=== PATIENT | female | born 1930 | race Caucasian/White ===

== ENCOUNTER 2017-01-08 15:31 | Emergency (ER) | payer MEDICARE, OTHER ==
[~2017-01-08 15:31] MED LIST: ASAB PO; BYSTOLIC5 MG PO; CALCIUM PO; CALTRA600D PO; CHOLECALCIFEROL PO; CIP5 PO; CRANBERRY300 MG PO; DEMA20 PO; ELIQUIS 5 MG TAB5 MG PO; GARLIC PO; HALF81 PO; IMDUR30 PO; INSNOVN SC; LANTUS SC; LIPITOR40 PO; MULTIPLE VIT PO; NORV5 PO; NOVOLOG SC; NOVOPEN SC; OS500+D PO; PLAVIX PO; PRAVAC PO; REFRES1 TOP; SYN125 PO; ULTRAM50 PO; VITAMIN D1000 UNI1 PO; VOLTAREN1 % TOP; Z100 PO; [UNRECOGNIZED DRUG - OTHER] PO; [UNRECOGNIZED DRUG - OTHER] TOP
[2017-01-08 17:19] LABS: BUN (BLOOD UREA NITROGEN) 27 MG/DL (6-23); CALCIUM, SERUM 8.6 MG/DL (8.5-10.4); CHLORIDE, SERUM 104 MMOL/L (96-112); CO2 (CARBON DIOXIDE) 28 MMOL/L (24-34); GFR AFRICAN AMERICAN 39 ML/MIN (>=60); GFR NON AFRICAN AMERICAN 34 ML/MIN (>=60); POTASSIUM, SERUM 3.9 MMOL/L (3.5-5.3); SODIUM, SERUM 141 MMOL/L (135-148)
[2017-01-08 17:20] LABS: GLUCOSE, SERUM 119 MG/DL (60-99)
[2017-01-09] MEDS ORDERED: X25 PO (15:21)
== END 2017-01-08 18:46 | disposition home or self-care (01) ==
LOC: ER 15:31
PROVIDERS: Physician Assistant
DX: T38.3X1A Poisoning by insulin and oral hypoglycemic [antidiabetic] drugs, accidental (unintentional), initial encounter (principal); I10 Essential (primary) hypertension; I25.2 Old myocardial infarction; I48.91 Unspecified atrial fibrillation; Z91.041 Radiographic dye allergy status; Z79.4 Long term (current) use of insulin; Z79.899 Other long term (current) drug therapy
CPT/HCPCS: 80048; 82962; 99284

== ENCOUNTER 2017-01-09 12:45 | Observation (INO) | payer MEDICARE, OTHER ==
[2017-01-09 13:49] LABS: BASOPHILS 0.5 %; BASOPHILS ABSOLUTE 0.04 10/3/uL (0.0-0.16); EOSINOPHILS 3.9 %; HEMATOCRIT 38.9 % (36.0-48.0); HEMOGLOBIN 12.8 g/dL (12.0-16.0); IMMATURE GRANULOCYTES 0.5 %; IMMATURE GRANULOCYTES ABSOLUTE 0.04 10/3/uL (0.0-0.11); LYMPHOCYTES ABSOLUTE 0.93 10/3/uL (0.67-4.30); MEAN CORPUS HGB CONC 32.9 g/dL (32.0-36.0); MEAN CORPUSCULAR HEMOGLOB 29.7 pg (26.0-34.0); MEAN CORPUSCULAR VOLUME 90.3 fL (80-100); MEAN PLATELET VOLUME 9.9 fL (9.2-13.0); MONOCYTES 9.3 %; MONOCYTES ABSOLUTE 0.72 10/3/uL (0.21-1.20); NEUTROPHILS 73.8 %; NEUTROPHILS ABSOLUTE 5.73 10/3/uL (2.02-8.40); PLATELET COUNT 308 10/3/uL (150-400); RBC DISTRIBUTION WIDTH 14.7 % (12.0-16.0); RED CELL COUNT 4.31 10/6/uL (4.0-5.6); WHITE BLOOD CELLS 7.8 10/3/uL (4.5-10.5)
[2017-01-09 13:50] LABS: MANUAL DIFF NO %
[2017-01-09 13:54] LABS: A/G RATIO 0.9 (0.7-1.9); BUN (BLOOD UREA NITROGEN) 25 MG/DL (6-23); CALCIUM, SERUM 9.2 MG/DL (8.5-10.4); CHLORIDE, SERUM 107 MMOL/L (96-112); CO2 (CARBON DIOXIDE) 28 MMOL/L (24-34); GFR AFRICAN AMERICAN 43 ML/MIN (>=60); GFR NON AFRICAN AMERICAN 37 ML/MIN (>=60); GLOBULIN 3.2 G/DL (2.5-4.1); GLUCOSE, SERUM 98 MG/DL (60-99); SGPT(ALT) 17 U/L (5-65); SODIUM, SERUM 143 MMOL/L (135-148); TOTAL BILIRUBIN 0.7 MG/DL (0-1.2); TOTAL PROTEIN 6.2 G/DL (6.0-8.5)
[2017-01-09 13:57] LABS: ALKALINE PHOSPHATASE 145 U/L (45-117); INTERNATIONAL NORMAL RATI 1.7 UNITS (-); PARTIAL THROMBO TIME 33.3 SEC (22.5-37.2); POTASSIUM, SERUM 4.9 MMOL/L (3.5-5.3); SGOT(AST) 25 U/L (5-40)
[2017-01-09 13:58] LABS: PROTIME (NOT ORD) 19.4 SEC (12.0-14.5)
[2017-01-09] MEDS ORDERED: X25 PO (15:21)
== END 2017-01-10 19:20 | disposition home or self-care (01) ==
LOC: SSU1 12:45
PROVIDERS: Internal Medicine Clinical Cardiac Electrophysiology
PROC: B51MZZZ Fluoroscopy of Right Upper Extremity Veins (ICD-10-PCS; principal; 2017-01-09)
DX: I48.1 Persistent atrial fibrillation (principal); I47.2 Ventricular tachycardia; Z79.4 Long term (current) use of insulin; Z79.01 Long term (current) use of anticoagulants; Z79.02 Long term (current) use of antithrombotics/antiplatelets; Z79.899 Other long term (current) drug therapy
CPT/HCPCS: 37248; 75820; 80053; 82962; 85025; 85347; 85610; 85730; 96374; 96375; 96376; 99152; 99153; A9270-GY; A9577; C1725; C1769; C1887; G0378; J2250; J2930; J3010